=== PATIENT | male | born 1960 | race Caucasian/White ===

== ENCOUNTER 2018-04-30 09:07 | Observation (INO) ==
[2018-04-30 09:52] LABS: Basophils % 0.5 % (0.0-0.8); Eosinophils # 0.1 10*3/uL (0.0-0.87); Eosinophils % 0.9 % (0.00-10.9); Hematocrit 45.8 VOL% (42.0-52.0); Hemoglobin 16.2 GM/DL (14.0-18.0); Immature Granulocytes % 0.8 %; Immature Granulocytes Absolute 0.07 #; Lymphocytes # 1.2 10*3/uL (1.4-4.0); Lymphocytes % 14.2 % (21.2-54.2); Mean Corpuscular HGB Conc 35.4 GM/DL (32-36); Mean Corpuscular Hemoglobin 32 PG (27-34); Mean Corpuscular Volume 91.6 FL (87-102); Mean Platelet Volume 9.9 FL (9.6-12.0); Monocytes # 0.6 10*3/uL (0.11-0.8); Monocytes % 6.6 % (1.7-12.7); Neutrophils # 6.7 10*3/uL (1.4-7.4); Platelet Count 164 T/CUMM (130-400); Red Cell Distribution Width 12.5 % (9.3-17.3); White Blood Count 8.7 T/CUMM (4-12)
[2018-04-30 10:09] LABS: Calcium 8.7 MG/DL (8.5-10.1); Osmolality,Calculated 272.4 MOS/KG (273-304); Potassium 4.9 MMOL/L (3.5-5.1)
[2018-04-30] MEDS ORDERED: BISACODYL 5 MG TABLET PO PRN (10:25)
[2018-04-30] MEDS ORDERED: ONDANSETRON 4 MG/2 ML VIAL IV PRN (10:25)
[2018-04-30] MEDS ORDERED: DEXTROSE 50% 25 GM/50 ML VIAL IV PRN (10:25)
[2018-04-30] MEDS ORDERED: HYDROmorphone 2 MG/1 ML VIAL IV PRN (10:25)
[2018-04-30] MEDS ORDERED: GLUCAGON 1 MG VIAL IM PRN (10:25)
[2018-04-30] MEDS ORDERED: ACETAMINOPHEN 325 MG TABLET PO PRN (10:25)
[2018-04-30] MEDS ORDERED: IBUPROFEN 400 MG TABLET PO PRN (10:25)
[2018-04-30] MEDS: SILVER SULFADIAZINE 1% CREAM 25 GM TUBE TOP SCH (15:47)
[2018-04-30] MEDS: INSULIN LISPRO 100 UNIT/ML SUBCUT SCH ×2 (15:51→16:11)
[2018-04-30] MEDS: LISINOPRIL/HCTZ 10-12.5 MG TABLET PO SCH (16:11)
[2018-04-30] MEDS: PIPERACILLIN/TAZOBACTAM 3,375 MG in SODIUM CHLORIDE 0.9% 100 ML IV SCH (16:12)
[2018-04-30] MEDS: PANTOPRAZOLE 40 MG TABLET PO SCH (16:12)
[2018-05-01] MEDS: PIPERACILLIN/TAZOBACTAM 3,375 MG in SODIUM CHLORIDE 0.9% 100 ML IV SCH ×2 (00:37→08:49)
[2018-05-01 05:02] LABS: Risk Ratio 4.34; VLDL CHOLESTEROL 47.2 MG/DL
[2018-05-01] MEDS ORDERED: GLIMEPIRIDE 2 MG TABLET PO SCH (08:00)
[2018-05-01] MEDS ORDERED: metFORMIN 500 MG TABLET PO SCH (08:00)
[2018-05-01] MEDS: LISINOPRIL/HCTZ 10-12.5 MG TABLET PO SCH (08:50)
[2018-05-01] MEDS: PANTOPRAZOLE 40 MG TABLET PO SCH (08:50)
[2018-05-01] MEDS: SILVER SULFADIAZINE 1% CREAM 25 GM TUBE TOP SCH (08:50)
[2018-05-01] MEDS: INSULIN LISPRO 100 UNIT/ML SUBCUT SCH (08:50)
[2018-05-01] MEDS ORDERED: OMEGA 3 ACID ETHYL ESTERS 1 GM CAPSULE PO SCH (09:00)
[2018-05-01 12:20] VITALS: BP 113/67
[2018-05-01] MEDS ORDERED: ATORVASTATIN 20 MG TABLET PO SCH (21:00)
== END 2018-05-01 11:50 | disposition home or self-care (01) ==
LOC: N.ED 09:07 → N.2E 09:07
PROVIDERS: ADMIT Surgery; ATTEND Surgery